=== PATIENT | male | born 2005 | race Two or more races ===

== ENCOUNTER 2025-07-22 11:13 | Emergency (ER) | payer MEDICAID, SELFPAY ==
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
[2025-07-22 11:18] VITALS: BP 139/59; PULSE 82; RESP 18; TEMP 36.4; O2SAT 98; BMI 40.0
--- OUTSIDE RECORDS SUMMARY | 2025-07-22 13:03 | XMS_ITS | Clinical Summary ---
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 ([facility]) Department [address] [facility] [facility] [address] [place] [id number] Provider, Population Health Generic from Last 3 Months Social History Tobacco Use Types Packs/Day Years Used Date Smoking Tobacco: Never Assessed Sex and Gender Information Value Date Recorded Sex Assigned at Not on file Legal Sex Male 2:08 AM EDT Gender Identity Not on file Sexual Orientation Not on file Plan of Treatment Health Maintenance Due Date Last Done Comments Chlamydia and Gonorrhea Screening 2004 Depression Screening 2004 HIV Screening 2004 SDOH Screening 2004 Disability Screening 2004 Alcohol/Substance Use Screening 2016 Tobacco Screening 2016 Family Planning (PISQ) 2019 HPV Vaccines (1 - Male 3-dos e series) 2019 Meningococcal B Vaccine (1 o f 2 - Standard) 2020 Hepatitis C Screening 2022 DTaP/Tdap/Td Vaccines (1 - Tdap) 2023 Hepatitis B Vaccines (1 of 3 - 19+ 3-dose series) 2023 COVID-19 Vaccine (1 - 2023-2 5 season) 2024 Influenza Vaccine (#1) 2025 Zoster Vaccines (1 of 2) 2054 RSV Patients and Pa tients Aged 60 years or older (1 - 1-dose 75+ series) 2079 HIB Vaccines Aged Out No longer eligi ble based on patient's age to complete this topic Hepatitis A Vaccines Aged Out No long er eligible based on patient's age to complete this topic IPV Vaccines Aged Out No longer eligi ble based on patient's age to complete this topic Meningococcal Vaccine Aged Out No danita iveth eligible based on patient's age to complete this topic Pneumococcal Vaccine: Pediat rics (0 to 5 Years) and At-Risk Patients (6 to 49) Years Aged Out No longer eligible b ased on patient's age to complete this topic RSV under 20 months Aged Out No longe r eligible based on patient's age to complete this topic Rotavirus Vaccines Aged Out No longer eligible based on patient's age to complete this topic
[2025-07-22 13:14] VITALS: BP 125/64; PULSE 66; RESP 18; TEMP 36.9; O2SAT 98
[2025-07-22 15:15] VITALS: BP 125/64; PULSE 66; RESP 18; TEMP 36.9; O2SAT 98
== END 2025-07-22 15:15 | disposition home or self-care (01) ==
PROVIDERS: Emergency Provider Emergency Medicine
DX: S80.11XA Contusion of right lower leg, initial encounter (principal); S70.02XA Contusion of left hip, initial encounter; R10.2 Pelvic and perineal pain; M25.561 Pain in right knee; V29.401A Electric (assisted) bicycle driver injured in collision with unspecified motor vehicles in traffic accident, initial encounter; Y93.55 Activity, bike riding; Y92.410 Unspecified street and highway as the place of occurrence of the external cause; Y99.8 Other external cause status
CPT/HCPCS: 73502; 73564; 73590; 99283

== ENCOUNTER → 2025-07-22 11:20 | Outpatient (BNV) | payer MEDICAID, SELFPAY | PROVIDERS: Emergency Provider Emergency Medicine; Visit Provider Radiology Diagnostic Radiology | DX: M25.561 Pain in right knee (principal); M25.552 Pain in left hip; R60.0 Localized edema; V28.41XA Electric (assisted) bicycle driver injured in noncollision transport accident in traffic accident, initial encounter | CPT/HCPCS: 73502; 73564; 73590 ==